=== PATIENT | male | born 1930 | race Caucasian/White ===

== ENCOUNTER → 2016-04-05 | Outpatient (CLI) | payer OTHER ==
[~2016-04-05] MED LIST: ADULT LOW DOSE81 MG PO; ASPIRIN EC81 M1 PO; CENTRUM SILVER1 EAC4 PO; CIPRO500 MG PO; CIPROFLOXACIN500 M1 PO; COZAAR 50 MG TA50 M2 PO; DOXYCYCLINE 10100 M1 PO; FENOFIBRATE160 MG PO; FLAGYL500 MG PO; FLOMAX0.4 MG PO; GLUCOPHAGE500 MG PO; GLUCOTROL5 MG PO; GLYBURIDE 3 MG M3 M1 PO; GLYNASE3 MG PO; JANUVIA 50 MG T50 M1 PO; JANUVIA50 MG PO; LANTUS100 UNIT/M SQ; LIPITOR10 MG PO; LISINOPRIL10 MG PO; LISINOPRIL2.5 MG PO; LOPRESSOR 50 MG50 M1 PO; LOPRESSOR50 PO; OCUVITE ADULT1 EACH PO; OCUVITE LUTEIN1 EAC1 PO; OXYBUTYNIN CHLO15 MG PO; PIOGLITAZONE15 MG PO; SUDAFED30 MG PO; SUMYCIN 250250 MG PO; TAMSULOSIN HCL0.4 M1 PO; TRIGLIDE160 M1 PO; TYLENOL P.M. E1 EAC3 PO; TYLENOL PM PO; ULTRAM 50MG TAB50 MG PO; UROXATRAL PO; VITAMIN D-32000 UNIT PO; VITAMIN D400 UNI1 PO; ZOCOR 10 MG TAB10 MG PO
--- NOTE | ~2016-04-05 | 2DMMODE ---
[facility] [place] [address] 2 D/M-MODE ECHOCARDIOGRAM Name: LEE ANN CHIANG Room #: REG CL [facility]#: [id number] Admission: 04/05/16 Attend Phys: Jason Carrasco MD Discharge: Date of : 34 Date of Service: 04/05/16 0901 Report #: [id number] THIS REPORT FOR: //name// Transthoracic Echocardiography Ordering physician: Jason Carrasco MD Referring physician: MD Codi Pizarro Jennifer S. Chemical Librarian: CHEO Nickerson Indications/History: CAD, DM, HTN, DLP. BP: 124 / HR: 59bpm Height: 72in Weight: 199.6lb 78 Study data: M-mode, complete 2D, complete spectral Doppler, and color Doppler. Location: Echo laboratory. Routine. Image quality was good. 2D measurements Normal Normal LVID ED 44.8mm 36-57 IVS ED 9mm 6-11 LVID ES 30.6mm 23-40 LVPW ED 9.2mm 6-11 LA volume 30ml/m2 16-28 AoRoot diam 29.1mm 21-37 index ED LVOT diameter 23mm 18-23 Findings: Left ventricle: The cavity size was normal. Wall thickness was normal. Systolic function was normal. The estimated ejection fraction was in the range of 55% to 60%. Wall motion was normal. Right ventricle: The cavity size was normal. Systolic function was normal. Right atrium: The atrium was mildly dilated. Left atrium: The atrium was normal in size. Volume index: 30ml/m2 (S). Aortic valve: Trileaflet; mildly calcified leaflets. Doppler: There was no stenosis. No regurgitation. Peak velocity: 103.8cm/s (S). [address] [address] 2 D/M-MODE ECHOCARDIOGRAM Name: LEE ANN CHIANG Room #: REG [facility]#: [id number] Admission: 04/05/16 Attend Phys: Jason Carrasco MD Discharge: Date of : 34 Date of Service: 04/05/16900 Report #: [id number] Mitral valve: Mildly calcified annulus. Doppler: There was no evidence for stenosis. Trivial regurgitation. Peak E-wave velocity: 75.5cm/s. Peak gradient: 2.3mm Hg (D). Peak A-wave velocity: 87.5cm/s. Tricuspid valve: Structurally normal valve. Doppler: There was no evidence for stenosis. Mild regurgitation. Regurgitant peak velocity: 269.4cm/s. Peak RV-RA gradient: 29mm Hg (S). Pulmonic valve: Structurally normal valve. Doppler: There was no evidence for stenosis. Trivial regurgitation. Pericardium: There was no pericardial effusion. Aorta: Aortic root: The aortic root was normal in size. Pulmonary artery: Systolic pressure was estimated to be 39mm Hg. Diastolic function: Doppler parameters are consistent with abnormal left ventricular relaxation (grade 1 diastolic dysfunction). Systemic veins: Inferior vena cava: The vessel was dilated; the respirophasic diameter changes were in the normal range (= 50%). Conclusions 1. Left ventricle: The cavity size was normal. Wall thickness was normal. 2. Right atrium: The atrium was mildly dilated. 3. Left atrium: The atrium was normal in size. 4. Aortic valve: There was no stenosis. 5. Mitral valve: Trivial regurgitation. 6. Tricuspid valve: Mild regurgitation. <ELECTRONICALLY SIGNED> By: Jason Carrasco MD 04/05/16 1004 0 1004 Jason Carrasco MD /jerod
== END ==
LOC: CV 08:50
DX: I25.10 Atherosclerotic heart disease of native coronary artery without angina pectoris (principal); E11.9 Type 2 diabetes mellitus without complications; I10 Essential (primary) hypertension; E78.5 Hyperlipidemia, unspecified

== ENCOUNTER → 2017-04-04 | Outpatient (CLI) | payer OTHER | LOC: NUC 07:15 | DX: I25.10 Atherosclerotic heart disease of native coronary artery without angina pectoris (principal); E11.9 Type 2 diabetes mellitus without complications ==

== ENCOUNTER → 2018-04-10 | Outpatient (CLI) | payer OTHER ==
--- NOTE | 2018-04-10 11:45 | 2DMMODE ---
[facility] [place] [place] [address] 2 D/M-MODE ECHOCARDIOGRAM Name: LEE ANN CHIANG Room #: REG CL [facility]#: [id number] Admission: 04/10/18 Attend Phys: Jason Carrasco MD Discharge: Date of : 34 Date of Service: 04/10/18 1144 Report #: [id number] THIS REPORT FOR: //name// APPROVED REPORT Study performed: 04/10/2018 11:10:59 EXAM: Comprehensive 2D, Doppler, and color-flow Echocardiogram Patient Location: Out-Patient Status: routine BSA: 2.13 HR: 110 bpm BP: 136/60 mmHg Rhythm: Atrial Fibrillation Other Information Study Quality: Adequate Indications CAD Hx: DM, HTN, HLP 2D Dimensions RVDd: 42.36 mm IVSd: 12.00 (7-11mm) LVOT Diam: 23.52 (18-24mm) LVDd: 42.00 mm PWd: 12.00 (7-11mm) Ascending Ao: 33.65 (22-36mm) LVDs: 28.00 (25-40mm) Aortic Root: 36.18 mm Volumes Left Atrial Volume (Systole) Single Plane 4CH: 61.85 mL Single Plane 2CH: 66.93 mL LA ESV Index: 33.00 mL/m2 Aortic Valve AoV Peak Sampson.: 1.46 m/s AO Peak Gr.: 8.64 mmHg LVOT Max P.21 mmHg LVOT Max V: 1.02 m/s MARCELLA Vmax: 3.04 cm2 Mitral Valve MV Decel. Time: 175.27 ms MV E Max Sampson.: 1.03 m/s [facility] [address] [place] [address] 2 D/M-MODE ECHOCARDIOGRAM Name: LEE ANN CHIANG Room #: REG CL [facility]#: [id number] Admission: 04/10/18 Attend Phys: Jason Carrasco MD Discharge: Date of : 34 Date of Service: 04/10/18 1144 Report #: [id number] Pulmonary Valve PV Peak Sampson.: 1.14 m/s PV Peak Gr.: 5.28 mmHg Tricuspid Valve TR Peak Sampson.: 2.76 m/s RAP Estimate: 5.00 mmHg TR Peak Gr.: 30.59 mmHg Left Ventricle The left ventricle is normal size. There is normal LV segmental wall motion. Mild concentric left ventricular hypertrophy. Left ventricular systolic function is normal. LVEF is 60-65%. This study is not technically sufficient to allow evaluation of the LV diastolic function due to atrial fibrillation. Right Ventricle The right ventricle is normal size. The right ventricular systolic function is normal. Atria Left atrium is at the upper limits of normal. The right atrium size is normal. Aortic Valve The aortic valve is normal in structure. No aortic regurgitation is present. There is no aortic valvular stenosis. Mitral Valve The mitral valve is normal in structure. Trace mitral regurgitation. Tricuspid Valve The tricuspid valve is normal in structure. Mild to moderate tricuspid regurgitation. Estimated PAP of 35-40mmHg. Pulmonic Valve The pulmonary valve is normal in structure. Trace pulmonic regurgitation. Great Vessels The aortic root is normal in size. The ascending aorta is normal in size. IVC is normal in size and collapses >50% with inspiration. Pericardium There is no pericardial effusion. [facility] [place] [address] 2 D/M-MODE ECHOCARDIOGRAM Name: LEE ANN CHIANG Room #: REG [facility]#: [id number] Admission: 04/10/18 Attend Phys: Jason Carrasco MD Discharge: Date of : 34 Date of Service: 04/10/18 1144 Report #: [id number] <Conclusion> The left ventricle is normal size. Mild concentric left ventricular hypertrophy. Left ventricular systolic function is normal. The right ventricle is normal size. Left atrium is at the upper limits of normal. The aortic valve is normal in structure. Trace mitral regurgitation. Mild to moderate tricuspid regurgitation. Estimated PAP of 35-40mmHg. <ELECTRONICALLY SIGNED> By: Jason Carrasco MD 04/10/18 1144 1144 1144 Jason Carrasco MD /INF
== END ==
LOC: CV 08:43
DX: I25.10 Atherosclerotic heart disease of native coronary artery without angina pectoris (principal); I07.1 Rheumatic tricuspid insufficiency; I10 Essential (primary) hypertension; E78.5 Hyperlipidemia, unspecified; E11.9 Type 2 diabetes mellitus without complications

== ENCOUNTER → 2019-05-08 | Outpatient (CLI) | payer OTHER | LOC: SJCVCIMAG 08:44 | DX: I44.7 Left bundle-branch block, unspecified (principal); R94.31 Abnormal electrocardiogram [ECG] [EKG]; I25.10 Atherosclerotic heart disease of native coronary artery without angina pectoris; I10 Essential (primary) hypertension; E78.00 Pure hypercholesterolemia, unspecified; Z88.5 Allergy status to narcotic agent; Z79.899 Other long term (current) drug therapy; Z79.82 Long term (current) use of aspirin ==

== ENCOUNTER → 2019-11-06 | Outpatient (CLI) | payer OTHER | LOC: SJCVC 11:03 | PROVIDERS: ATTEND Internal Medicine Cardiovascular Disease | DX: I25.10 Atherosclerotic heart disease of native coronary artery without angina pectoris (principal); R94.31 Abnormal electrocardiogram [ECG] [EKG]; I49.49 Other premature depolarization; I45.2 Bifascicular block; I10 Essential (primary) hypertension; E78.00 Pure hypercholesterolemia, unspecified; Z79.899 Other long term (current) drug therapy ==

== ENCOUNTER → 2020-05-04 | Outpatient (CLI) | payer OTHER | LOC: SJCVCIMAG 09:53 | PROVIDERS: ATTEND Internal Medicine Cardiovascular Disease | DX: R94.31 Abnormal electrocardiogram [ECG] [EKG] (principal); I45.2 Bifascicular block; I07.1 Rheumatic tricuspid insufficiency; I11.9 Hypertensive heart disease without heart failure; I25.10 Atherosclerotic heart disease of native coronary artery without angina pectoris; E78.00 Pure hypercholesterolemia, unspecified; E11.9 Type 2 diabetes mellitus without complications; M19.90 Unspecified osteoarthritis, unspecified site; Z88.5 Allergy status to narcotic agent; Z79.82 Long term (current) use of aspirin; Z79.899 Other long term (current) drug therapy; Z85.46 Personal history of malignant neoplasm of prostate ==

== ENCOUNTER → 2020-11-02 | Outpatient (CLI) | payer OTHER | LOC: SJCVC 11:11 | PROVIDERS: ATTEND Internal Medicine Cardiovascular Disease | DX: R94.31 Abnormal electrocardiogram [ECG] [EKG] (principal); R00.1 Bradycardia, unspecified; I45.2 Bifascicular block; I10 Essential (primary) hypertension; I25.10 Atherosclerotic heart disease of native coronary artery without angina pectoris; E78.00 Pure hypercholesterolemia, unspecified; R60.9 Edema, unspecified; E11.9 Type 2 diabetes mellitus without complications; M19.90 Unspecified osteoarthritis, unspecified site; Z88.8 Allergy status to other drugs, medicaments and biological substances; Z79.82 Long term (current) use of aspirin; Z79.899 Other long term (current) drug therapy; Z82.49 Family history of ischemic heart disease and other diseases of the circulatory system ==

== ENCOUNTER → 2021-05-03 | Outpatient (CLI) | payer OTHER | LOC: SJCVCIMAG 08:38 | PROVIDERS: ATTEND Internal Medicine Cardiovascular Disease | DX: I25.9 Chronic ischemic heart disease, unspecified (principal); I45.10 Unspecified right bundle-branch block; I45.2 Bifascicular block; I49.3 Ventricular premature depolarization; C61 Malignant neoplasm of prostate; I25.10 Atherosclerotic heart disease of native coronary artery without angina pectoris; E78.00 Pure hypercholesterolemia, unspecified; I10 Essential (primary) hypertension; I73.9 Peripheral vascular disease, unspecified; E11.621 Type 2 diabetes mellitus with foot ulcer; L97.311 Non-pressure chronic ulcer of right ankle limited to breakdown of skin; M19.90 Unspecified osteoarthritis, unspecified site; Z79.4 Long term (current) use of insulin; Z79.82 Long term (current) use of aspirin; Z79.899 Other long term (current) drug therapy; Z90.49 Acquired absence of other specified parts of digestive tract; Z82.49 Family history of ischemic heart disease and other diseases of the circulatory system; Z88.5 Allergy status to narcotic agent ==